=== PATIENT | female | born 1965 | race Caucasian/White ===

== ENCOUNTER 2018-12-12 10:58 | Observation (INO) | payer BC ==
[2018-12-12] VITALS (7 sets, daily range): BP systolic 117–148; BP diastolic 76–107; BMI 26.6
[~2018-12-12 10:58] MED LIST: BACTRIM 400-801 TAB PO; COZAAR100 MG; EFFEXOR XR75 MG PO; ESTRACE 0.0142.5 GM VG; FLAGYL 500500 MG/100 PO; HYDROCODON-ACE1 EAC7; MEDROL DOSE PACK4 MG; SOMA350 MG; TEMAZEPAM30 MG PO; XIFAXAN200 MG PO; ZOFRAN4 MG PO
--- NOTE | 2018-12-12 11:20 | NUR ---
RECEIVED PT TO LABOR AND DELIVERY, ROOM #1257, PT ORIENTED TO ROOM, TO BED. REVIEWING WRITTEN ORDERS FROM DR. HERRERA.
--- NOTE | 2018-12-12 11:30 | NUR ---
SEE EMAR FOR ALL MEDS ADM BY THIS RN.
--- NOTE | 2018-12-12 12:14 | NUR ---
PT TO XRAY BY WHEELCHAIR WITH RAD STAFF.
[2018-12-12 12:20] LABS: HEMATOCRIT 47.1 % (36.0-48.0); HEMOGLOBIN 16.5 g/dL (12-16); LYMPHOCYTES 33.3 % (15-50); MCH 30.6 pg (26.0-34.0); MCV 87.2 fL (80.0-100.0); MEAN PLATELET VOLUME 8.5 fL (7.4-10.4); NEUTROPHILS 60.2 % (40-80); RDW 13.3 % (11.5-14.5); WBC 8.4 10x3/uL (4.8-10.8)
[2018-12-12 12:21] LABS: PLATELET COUNT 436 10x3/uL (130-400)
[2018-12-12 12:37] LABS: ALBUMIN 4.8 g/dL (3.4-5.0); ANION GAP 18.2 mmol/L (8-16); BILIRUBIN - TOTAL 0.63 mg/dL (0.2-1.3); CALCIUM 10.3 mg/dL (8.5-10.1); CARBON DIOXIDE 26.2 mmol/L (21.0-32.0); CREATININE - SERUM 1.2 mg/dL (0.6-1.3); POTASSIUM - SERUM 3.4 mmol/L (3.5-5.1); PROTEIN - SERUM 8.8 g/dL (6.4-8.2)
[2018-12-12 12:47] LABS: BILIRUBIN - DIRECT 0.11 mg/dL (0.00-0.30); BILIRUBIN - INDIRECT 0.52 mg/dL (0.00-1.00); T4 THYROXIN - FREE 1.09 ng/dL (0.76-1.46); THYROID STIMULATING HORMONE 1.16 uIU/mL (0.36-3.74)
[2018-12-12 12:54] LABS: APPEARANCE HAZY (CLEAR); BILIRUBIN NEGATIVE (NEGATIVE); COLOR DK YELLOW (YELLOW); GLUCOSE NEGATIVE (NEGATIVE); KETONE SMALL mg/dL (NEGATIVE); NITRITE NEGATIVE (NEGATIVE); PROTEIN TRACE mg/dL (NEGATIVE); SPECIFIC GRAVITY 1.025 (1.005-1.020)
[2018-12-12 12:55] LABS: BACTERIA FEW /hpf (NONE SEEN); EPITHELIAL CELLS 0-5 /hpf (0-5); HYALINE CAST 0-5 /lpf (NONE SEEN); MUCUS >1+ /lpf (NONE SEEN); WHITE CELLS - URINE RARE /hpf (0-5)
--- NOTE | 2018-12-12 12:55 | NUR ---
Nola ALLEN RN TO ROOM, PT HAS REQUESTED JUICE TO DRINK, APPLE JUICE, CRANBERRY AND GRAPE JUICE SERVED.
--- NOTE | 2018-12-12 13:00 | NUR ---
DR. HERRERA TO ROOM TO SPEAK WITH PT.
--- NOTE | 2018-12-12 13:20 | NUR ---
AFTER TWO ATTEMPTS TO START IV, ONCE IN RIGHT WRIST, AND ONCE IN LEFT FOREARM, UNSUCCESSFUL. DR. WADDELL NOTIFIED, AND HERE TO START IV. 20 G IV TO LEFT WRIST X [address] WADDELL WITH D5 1/2 NS, SET ON PUMP AT 150 ML/HR.
--- NOTE | 2018-12-12 14:00 | NUR ---
PT CALLS OUT LIFE MANAGER LIGHT AND REQUESTS MORE JUICE TO DRINK, CRANBERRY JUICE SERVED. PT STATES "IT FEELS SO GOOD TO BE ABLE TO DRINK AND NOT BE SICK, THAT ZOAN WORKS WONDERS". PT SITTING UP IN THE BED, AND DENIES ALL OTHER NEEDS AT THIS TIME. SR UP X 2, CALL LIGHT AND PHONE WITHIN REACH.
--- NOTE | 2018-12-12 14:30 | NUR ---
PT UP TO BR, VOIDS, PT STATES SHE IS HAVING SOME LOWER BACK/FLANK PAIN. 24 HOUR URINE COLLECTION STARTED. PT BACK TO BED, SRUP X2, CALL LIGHT AND PHONE WITHIN REACH.
--- NOTE | 2018-12-12 15:39 | NUR ---
DR. NAJERA IN ROOM TO SPEAK WITH PT.
--- NOTE | 2018-12-12 15:50 | NUR ---
DR. NAJERA AT DESK, WITH VERBAL ORDER RECEIVED TO OBTAIN CONSENTS FOR EGD WITH TIVA ON 12/13/18 @ 1400, PT TO BE NPO AFTER MIDNIGHT.
--- NOTE | 2018-12-12 18:47 | NUR ---
PT IS REPORTING PAIN AGAIN TO UPPER RIGHT STOMACH AREA AND MID BACK PAIN. PT IS REQUESTING SOMETHING STRONGER THAN TYLENOL. DR. HERRERA PAGED.
--- NOTE | 2018-12-12 18:53 | NUR ---
REPORT GIVEN TO 7 P SHIFT.
--- NOTE | 2018-12-12 19:31 | NUR ---
PLAN OF CARE REVIEWED WITH PT. PT REQUESTS TO TAKE MILK OF MAG, XANAX, AND ZOFRAN, MEDS GIVEN PER ORDER AND PT REQUEST. PT REQUESTING PIV BE SL ALSO, STATES THAT SHE HAS URINARY FREQUENCY ON A REGULAR BASIS AND "I HAVE TAKEN MY WATER PILL, I'LL BE IN THE BATHROOM ALL NIGHT." ALSO C/O PAIN 5/10 RIGHT FLANK AND MID BACK REGION WITH RUQ ABD PAIN, STATES THAT RUQ ABD PAIN IS SHARP STABBING/ACHE AND FLANK/MID-BACK PAIN IS DULL ACHE. NO ORDERS NOTED FOR PAIN MEDICATIONS WILL PG ON-CALL MD AND REPORT. SHIFT ASSESSMENT COMPLETED PER FLOWSHEET. BOWELS SOUNDS PRESENT AND HYPERACTIVE X4 QUADS. REPORTS THAT SHE HAD LARGE BM LAST NIGHT FOLLOWING TAKING MAG CITRATE. ICE WATER PROVIDED. DENIES ADDITIONAL NEEDS AT THIS TIME. BED IN LOW POSITION WITH UPPER SIDE RAILS RAISED X2. CALL LIGHT AND PHONE WITHIN REACH. WILL CONTINUE TO MONITOR AND ASSIST PRN.
--- NOTE | 2018-12-12 19:52 | NUR ---
DR HERRERA PAGED PER PT REQUEST FOR 5/10 ABDOMINAL PAIN. PT WANTS SOMETHING STRONGER THAN THE TYLENOL HE ORDERED.
--- NOTE | 2018-12-12 19:57 | NUR ---
MEDICAL, ANESTHESIA, AND BLOOD CONSENTS SIGNED AND WITNESSED FOR EDG WITH TIVA. PT DENIES QUESTIONS.
--- NOTE | 2018-12-12 20:03 | NUR ---
DR NIÑO CALLED TO LABOR UNIT AT THIS TIME FOR DR HERRERA, REPORT GIVEN TO INCLUDE PT REQUEST FOR NORCO 5/325MG FOR 5/10 ABDOMINAL PAIN AND TO HAVE HER IV SALINE LOCKED. CREATININE LEVEL REPORTED AND NEW ORDERS NOTED FOR PAIN MEDICATION AND TO SALINE LOCK IV.
--- NOTE | 2018-12-12 20:20 | NUR ---
NORCO GIVEN PER ORDER AND PT REQUEST. C/O PAIN 5/10 ABD RUQ DULL ACHE AND RIGHT MID BACK TO FLANK PAIN SHARP STABBING. REPORTS THAT PAIN INCREASED AFTER SHE ATE THIS EVENING. DINNER TRAY REMOVED FROM ROOM WITH 50% EATEN. PIV TO RIGHT HAND SL AT THIS TIME. PT UPDATED ON PLAN OF CARE AND VERBALIZES UNDERSTANDING. NONSKID SOCKS PROVIDED TO PT. DENIES ADDITIONAL NEEDS. BED IN LOW POSITION WITH UPPER SIDE RAILS RAISED X2. CALL LIGHT AND PHONE WITHIN REACH. WILL CONTINUE TO MONITOR AND ASSIST PRN.
--- NOTE | 2018-12-12 20:25 | NUR ---
PHARMACY CALLED FOR PTS MIGRAINE MEDICATION, STATES THAT THEY HAVE ORDERED IT BUT IT WILL NOT BE HERE UNTIL THE MORNING.
--- NOTE | 2018-12-12 21:15 | NUR ---
PAIN REASSESSMENT COMPLETED. 08/22, DENIES NEEDS. ICE WATER PROVIDED AND ENCOURAGED PO INTAKE. BED IN LOW POSITION WITH UPPER SIDE RAILS RAISED X2. CALL LIGHT AND PHONE WITHIN REACH.
--- NOTE | 2018-12-12 22:44 | NUR ---
30 MG RESTORIL GIVEN PER PT REQUEST. ORTHOSTATIC V/S DONE WITH LAYING PRESSURE OF 127/85, SITTING 120/85, AND STANDING 117/76. DENIES DIZZINESS. DENIES PAIN AND NEEDS. ICE REPLACED ON URINE. BED IN LOW POSITION WITH UPPER SIDE RAILS RAISED X2. CALL LIGHT AND PHONE WITHIN REACH. ENCOURAGED USE OF CL FOR ASSISTANCE OOB PRN, VERBALIZES UNDERSTANDING. WILL CONTINUE TO MONITOR.
--- NOTE | 2018-12-13 00:30 | NUR ---
PT RESTING QUIETLY WITH EYES CLOSED, EASILY AROUSED TO VERBAL. DENIES NEEDS, WILL CONTINUE TO MONITOR
--- NOTE | 2018-12-13 01:37 | NUR ---
OCCULT STOOL SPECIMAN COLLECTED AND TAKEN TO LAB. DENIES PAIN AND NEEDS AT THIS TIME. STEADY GAIT NOTED. BED IN LOW POSITION WITH UPPER SIDE RAILS RAISED X2. CALL LIGHT AND PHONE WITHIN REACH. WILL CONTINUE TO MONITOR AND ASSIST PRN.
--- NOTE | 2018-12-13 03:31 | NUR ---
C/O RIGHT FLANK/MID BACK PAIN 4/10 AND NAUSEA. NORCO GIVEN WITH SMALL SIP OF WATER AND ZOFRAN GIVEN SLOW IVP. DENIES ADDITIONAL NEEDS. REPORTS THAT SHE IS STRAINING URINE AND HAS NOT SEEN A STONE. RT HAND PIV FLUSHES WITHOUT DIFFICULTY, NO S/S OF INFILTRATION NOTED. BED IN LOW POSITION WITH UPPER SIDE RAILS RAISED X2. CALL LIGHT AND PHONE WITHIN REACH. WILL CONTINUE TO MONITOR AND ASSIST PRN.
--- NOTE | 2018-12-13 04:20 | NUR ---
PAIN REASSESSMENT COMPLETED. PT RESTING QUIETLY WITH EYES CLOSED. RESPIRATIONS REGULAR AND UNLABORED, NO S/S OF DISTRESS NOTED. BED IN LOW POSITION WITH UPPER SIDE RAILS RAISED X2. CALL LIGHT AND PHONE WITHIN REACH. WILL CONTINUE TO MONITOR AND ASSIST PRN.
[2018-12-13 05:14] VITALS: BP 127/81
--- NOTE | 2018-12-13 05:14 | NUR ---
ROUNDS MADE. WATCHING TV. VSS. REFUSES ORTHOSTATIC V/S AT THIS TIME, STATES THAT SHE FEELS "OKAY AND I'M NOT DIZZY LIKE I WAS WHEN I CAME IN." DENIES NEEDS. BED IN LOW POSITION WITH UPPER SIDE RAILS RAISED X2. CALL LIGHT AND PHONE WITHIN REACH. WILL CONTINUE TO MONITOR AND ASSIST PRN.
--- NOTE | 2018-12-13 06:13 | NUR ---
UP IN BATHROOM, DENIES NEEDS AT THIS TIME. BED IN LOW POSITION WITH UPPER SIDE RAILS RAISED X2. CALL LIGHT AND PHONE WITHIN REACH. WILL CONTINUE MONITOR AND ASSIST PRN.
--- NOTE | 2018-12-13 07:09 | NUR ---
REPORT TO DAY SHIFT.
--- NOTE | 2018-12-13 07:25 | HP ---
PATIENT: MYRA LOPEZ MEDICAL RECORD: [id number] ACCOUNT: [id number] LOCATION:[id number] : 65 ADMISSION DATE: 12/12/18 PCP: LALI HERRERA MD HISTORY AND PHYSICAL EXAMINATION OBSERVATION NOTE HISTORY OF PRESENT ILLNESS: The patient is a 53-year-old female, 3-0-0-3, who presents with a 1-week history of nausea, intermittent abdominal pain, constipation and poor oral intake. She was noted last week to have microscopic hematuria and an outpatient CT did reveal bilateral punctate renal stones and a distal stone on the left, which she passed most likely. She then went on a trip to [place] and on coming back became somewhat nauseated and has continued. She has had very little p.o. intake in the last 5 days as a result. She had nausea without vomiting, but has retched a few times. She is taking cathartics to help move her bowels. She had x-ray in the office yesterday that showed still significant stool in her colon. She took mag citrate last night and had good evacuation. She also was concerned she has been having intermittent flushing for several months of her face. It is not associated with meals, but occasionally has diarrhea. Since July of last year, she has been fatigued with no energy. She had had menopausal symptoms, but says these new flushes she is having are unlike her previous hot flashes. She has had gradual weight gain over the last 5 years despite exercise. She was hospitalized in 2014 for an episode of colitis that responded to oral antibiotics, but she did not have a followup colonoscopy. Her last colonoscopy was at least [address] Bender showed some diverticulitis. She was diagnosed with IBS. She has history of seasonal depression as well and has been no medication for this and this last year. PAST MEDICAL HISTORY: Cholelithiasis, history of dermoid cyst of the right ovary post-oophorectomy in 1990, history of essential hypertension, osteoarthritis, migraine headaches, seasonal affective disorder, question of bipolar disorder, menopausal, history of multiple ureteral stones with lithotripsy and stone basket times 3, has had remote fibular fracture, chronic insomnia. SOCIAL HISTORY: . Nonsmoker. Drinks occasional wine. She is a physician, non-practicing. She has 3 children, all have finished college. FAMILY HISTORY: Her mother is living, has history of CAD and hypertension. Father of sudden . There is apparently history of some aunts with colon cancer. ALLERGIES: None mentioned. PAST SURGICAL HISTORY: Right oophorectomy in 1990 for teratoma, cholecystectomy, left knee surgery, total hysterectomy in 2007 due to metrorrhagia. HOME MEDICATIONS: Restoril 30 mg at bedtime p.r.n. sleep; Dyazide 1 every morning; Relpax 40 mg p.o. as directed for migraine headaches; diclofenac 50 mg p.o. b.i.d. after meals for arthralgias, Verapamil ER 240 mg a day, Protonix 40 mg daily started recently. REVIEW OF SYSTEMS: HISTORY AND PHYSICAL [id number] MYRA LOPEZ GENERAL: Fatigue with significant weight gain over the last several years. Fatigue has been worse over the last 5 months. Poor appetite. HEENT: No recent visual change, sinus congestion, sore throat, or hearing difficulty. RESPIRATORY: No severe cough. CARDIAC: She has intermittent palpitations at times, especially at night and she is unable to sleep. Denies any exertional chest pain, PND, orthopnea or edema. GASTROINTESTINAL: Has had nausea consistently for the last 5 days, resulting in poor appetite. No solid food, dysphagia, blood per rectum or GERD symptoms. Last colonoscopy was over 12 years ago showing diverticulitis she states. GENITOURINARY: No dysuria currently. She has had some microscopic hematuria, but her renal colic has resolved. GYNECOLOGICAL: No vaginal bleeding. RESPIRATORY: No cough, sputum production. MUSCULOSKELETAL: Has lumbago without sciatica. She has some arthralgias in her left knee as well. INTEGUMENT: No rash or itching except for flushing she has intermittently, not related to meals. ENDOCRINE: Denies polyuria, polydipsia, has had some heat intolerance, but not a cold intolerance. PSYCHIATRIC: Admits to seasonal depression. Says she is not overly depressed currently. She is anxious about her health and is concerned she might have carcinoid tumor. NEUROLOGICAL: No history of stroke, TIA. Has had history of migraine headaches in the past, improved since menopause. PHYSICAL EXAMINATION: VITAL SIGNS: Blood pressure 148/107, heart rate is 106 and regular, respirations are 20, sats 97% on room air, temperature is 97.7 Fahrenheit. GENERAL: The patient is anxious and alert. HEENT: Normocephalic. Eyes are clear. Mucous membranes are dry. Her face shows malar flushing. NECK: Supple, without bruits. CHEST: Clear. HEART: Tachycardic without murmur or gallop. ABDOMEN: Soft, nontender throughout. Bowel sounds are active. RECTAL: Deferred. EXTREMITIES: No CC&E. Slight crepitus in left knee to flexion and extension. NEUROLOGIC: Oriented to person, place, and time. Cranial nerves are intact. Gait is normal. Reflexes intact. PSYCHIATRIC: She is anxious and concerned about potential for carcinoid tumor, which she thinks she may have. There is no family history. She has seasonal depressive symptoms and says they are not severe now. She has seen psychiatry in the past. Chronic insomnia. She denies suicidal ideation. DIAGNOSTIC DATA: Recent CT scan of the abdomen at [facility] showed some hepatic steatosis, bilateral small punctate renal stones, otherwise unremarkable except for absence of uterus, right ovary and gallbladder. LABORATORY DATA: Has a white count of 8400, hemoglobin 16.5, hematocrit 47.1, platelet count is 436,000 with normal diff. Chemistry; potassium is low at 3.4, BUN and creatinine are 31 and 1.2, anion gap is 18, glucose 113. AST and ALT are mildly elevated at 50 and 82 respectively. T4 and TSH are normal. HISTORY AND PHYSICAL [id number] MYRA LOPEZ ASSESSMENT: 1. Symptomatic intravascular volume depletion. 2. Hypokalemia. 3. New-onset constipation, diverticulosis, history of colitis, flushing, etiology unknown. History of irritable bowel syndrome, history of teratoma, postmenopausal, depression, hypertension. PLAN: We will hydrate the patient. Currently, she is dehydrated, both clinically and is prerenal on her lab results. We will check 24-hour 5-HIAA urine collection because we are concerned for carcinoid. Replace potassium. Control blood pressure. Further workup pending clinical course. TRANSINT:[id number] Voice Confirmation ID: [id number] DOCUMENT ID: [id number] LALI HERRERA MD at 0725 CC: [id number] DICTATION DATE: 12/12/18 1345 FLIGHT PARAMEDIC: 12/12/18 1538 [place] [id number]
[2018-12-13 07:32] VITALS: BP 128/89
[2018-12-13 07:35] LABS: ALBUMIN 4.2 g/dL (3.4-5.0); ANION GAP 13.9 mmol/L (8-16); BILIRUBIN - DIRECT 0.14 mg/dL (0.00-0.30); BILIRUBIN - INDIRECT 0.55 mg/dL (0.00-1.00); BILIRUBIN - TOTAL 0.69 mg/dL (0.2-1.3); CALCIUM 9.4 mg/dL (8.5-10.1); CARBON DIOXIDE 26.3 mmol/L (21.0-32.0); CREATININE - SERUM 0.9 mg/dL (0.6-1.3); PROTEIN - SERUM 7.8 g/dL (6.4-8.2)
[2018-12-13 07:37] LABS: POTASSIUM - SERUM 4.2 mmol/L (3.5-5.1)
--- NOTE | 2018-12-13 07:45 | NUR ---
BEDSIDE SHIFT REPORT COMPLETED AND AM ASSESSMENT ALSO DONE AT THIS TIME. PT DENIES NAUSEA AND STATES SHE HAS "NO MORE DISCOMFORT THAN USUAL" SALINE LOCK TO LEFT HAND IS PATENT WITH NO SIGNS OF REDNESS OR SWELLING, DENIES TENDERNESS WITH TOUCH. ICE ADDED TO URINE COLLECTION IN BATHROOM. DENIES ANY NEEDS AT THIS TIME, SIDE RAILS UP X 2 WITH PHONE AND CALL LIGHT IN REACH.
--- NOTE | 2018-12-13 08:30 | NUR ---
CALLED TO ROOM, PT ASKING IF SOMEONE WAS JUST IN HER ROOM? SHE APPEARS DROWSY SHE IS ASKING THIS, REASSURED HER THAT NO ONE THAT THIS RN IS AWARE OF HAD RECENTLY BEEN IN ROOM COULD SHE HAVE BEEN DREAMING THIS. STATES SHE JUST WANTED TO MAKE SURE BECAUSE THE DREAM SHE HAD WAS SO REAL THAT IT WOKE HER UP SHE DID NOT GO IN TO DETAIL ABOUT DREAM BUT AFTER TALKING SHE ASKED FOR LIGHTS TO BE TURNED DOWN AND REPOSITIONED SELF TO LEFT SIDE. SIDE RAILS UP X 2 WITH CALL LIGHT IN REACH.
--- NOTE | 2018-12-13 09:30 | NUR ---
PT ASKING FOR HER XANXAX DUE TO FEELING INCREASE ANXIETY, UNDERSTANDS THAT SURGERY WOULD BE CONTACTED DUE TO HER BEING NPO FOR EGD SCHEDULED THIS AFTERNOON.
--- NOTE | 2018-12-13 09:40 | NUR ---
SURGERY CALLED, SPOKE WITH THU WHO SUGGEST THAT ANESTHESIA BE CONTACTED ABOUT PT TAKING MEDS THIS AM.
--- NOTE | 2018-12-13 09:41 | NUR ---
DR WADDELL PAGED AND RETURNS CALL IMMEDIATELY, REPORT GIVEN OF PT ASKING FOR PRN XANAX, AND BLOOD PRESSURE MED. OK PER DR WADDELL TO GIVE THESE WITH SMALL SIP OF WATER. =
--- NOTE | 2018-12-13 09:45 | NUR ---
DR WADDELL PAGED AND RETURNS CALL IMMEDIATELY, REPORT GIVEN OF PT ASKING FOR PRN XANAX, AND BLOOD PRESSURE MED. OK PER DR WADDELL TO GIVE THESE WITH SMALL SIP OF WATER.
--- NOTE | 2018-12-13 09:45 | NUR ---
MEDS GIVEN CHARTED ON EMAR. PT APPEARS MORE RELAXED AND IS ON HER COMPUTER. DENIES ANY OTHER NEEDS AT THIS TIME.
[2018-12-13 10:42] VITALS: BMI 26.6
--- NOTE | 2018-12-13 11:00 | NUR ---
ROUNDS MADE, PT RESTING WITH EYES CLOSED AND RESP EVEN, SHE DOES OPEN HER EYES ROOM DOOR IS CLOSING. VERIFIED THAT NO NEEDS AT THIS TIME. SIDE RAILS UP X 2 WITH CALL LIGHT IN REACH.
--- NOTE | 2018-12-13 12:40 | NUR ---
PT REMAINS ON LEFT SIDE WITH EYES CLOSED AND RESP EVEN, NO SIGNS OF DISTRESS NOTED, PT LEFT UNDISTURBED. CALL LIGHT WITH IN HER REACH WITH SIDE RAILS UP X 2.
[2018-12-13 14:00] VITALS: BP 114/73
--- NOTE | 2018-12-13 14:00 | NUR ---
GI LAB CALLS REQUESTING THAT PT BE GIVEN PRE-OP MEDS OF PEPCID AND REGLAN.
--- NOTE | 2018-12-13 14:09 | NUR ---
PRE-OP MEDS GIVEN IVP, PT CHANGED IN TO HOSPTIAL GOWN AND UP TO VOID. DENIES ANY QUESTIONS OR CONCNERS.
--- NOTE | 2018-12-13 14:30 | NUR ---
TAKEN TO GI LAB VIA BED WITH OUTPT RN.
--- NOTE | 2018-12-13 15:45 | NUR ---
PT RECEIVED BY BED BACK TO ROOM FROM GI, SHE IS AWAKE AND ALERT. DENIES PAIN OR DISCOMFORT, NO NAUSEA AND IS ASKING FOR SOMETHING TO DRINK. ORDERS CHECKED, SMALL APPLE JUICE PER REQUEST. PT ASKING WHEN SHE WILL BE ABLE TO GO HOME, P T MOTHER AT BEDSIDE.
--- NOTE | 2018-12-13 16:30 | NUR ---
DIETARY NOTIFIED OF PT REQUEST FOR CREAM OF CHICKEN SOUP. LARGE ICE WATER PER REQUEST. DENIES PAIN OR DISCOMFORT AT THIS TIME.
--- NOTE | 2018-12-13 17:15 | NUR ---
DISCHARGE ORDER RECEIVED.
--- NOTE | 2018-12-13 17:45 | NUR ---
SALINE LOCK REMOVED WITH CATH INTACT. PT HAS ALREADY DRESSED, VERBAL AND WRITTEN DISCHARGE INSTRUCTIONS GONE OVER WITHOUT QUESTIONS OR CONCERNS. UNDERSTANDS TO TAKE PROTONIX 40MG X 30DAYS. DENIES ANY QUESTIONS OR CONCERNS. PT REQUEST TO WALK OUT WITH SPOUSE. NO SIGNS OF DISTRESS NOTED.
[2018-12-18 04:09] LABS: 5HIAA - 24HR 2.5 mg/24 hr (0.0-14.9); 5HIAA - UR 3.6 mg/L (Undefined)
== END 2018-12-13 17:45 | disposition home or self-care (01) ==
LOC: D.LD 10:58 → OBSVTIME 11:00 → D.LD 12-13 17:45
PROVIDERS: ADMIT Family Medicine; ATTEND Family Medicine
DX: K29.70 Gastritis, unspecified, without bleeding (principal); E86.9 Volume depletion, unspecified; E87.6 Hypokalemia; K57.90 Diverticulosis of intestine, part unspecified, without perforation or abscess without bleeding; K59.00 Constipation, unspecified; Z78.0 Asymptomatic menopausal state; I10 Essential (primary) hypertension; F33.9 Major depressive disorder, recurrent, unspecified; K29.80 Duodenitis without bleeding; E86.0 Dehydration

== ENCOUNTER 2020-03-27 02:15 | Emergency (ER) | payer BC ==
[~2020-03-27] VITALS: Ht 165.1 cm; Wt 68.2 kg
[2020-03-27 02:23] VITALS: Ht 165.1 cm; Wt 68.2 kg
[2020-03-27] MEDS ORDERED: EFFEXOR50 MG PO (02:25)
[2020-03-27] MEDS ORDERED: TRIAMTERENE-HC1 EAC3 PO (02:25)
[2020-03-27 02:36] LABS: BASOPHILS 0.4 % (0-2); EOSINOPHILS 2.3 % (0-7); HEMATOCRIT 42.4 % (36.0-48.0); HEMOGLOBIN 14.5 g/dL (12-16); IMMATURE GRANULOCYTES 0.2 % (0-5); LYMPHOCYTES 36.6 % (15-50); MCH 30.2 pg (26.0-34.0); MCHC 34.2 g/dL (31.0-37.0); MCV 88.3 fL (80.0-100.0); MEAN PLATELET VOLUME 8.7 fL (7.4-10.4); MONOCYTES 5.4 % (2-11); NEUTROPHILS 55.1 % (40-80); WBC 9.8 10x3/uL (4.8-10.8)
[2020-03-27 02:37] LABS: PLATELET COUNT 326 10x3/uL (130-400)
[2020-03-27 02:52] LABS: ALBUMIN 4.2 g/dL (3.4-5.0); ALKALINE PHOSPHATASE 111 U/L (30-120); ALT (SGPT) 114 U/L (10-68); AMYLASE - SERUM 71 U/L (25-115); BILIRUBIN - TOTAL 0.34 mg/dL (0.2-1.3); CALC OSMOLALITY 287 mosm/kg (275-300); CALCIUM 9.6 mg/dL (8.5-10.1); CHLORIDE - SERUM 101 mmol/L (98-107); CREATININE - SERUM 1.1 mg/dL (0.6-1.3); GLUCOSE 109 mg/dL (74-106); LIPASE 128 U/L (73-393); PROTEIN - SERUM 8.1 g/dL (6.4-8.2); SODIUM 143 mmol/L (136-145); UREA NITROGEN 19 mg/dL (7-18); eGFR NON AFRICAN AMERICAN 55 mL/min (90-120)
[2020-03-27 03:04] LABS: TROPONIN-I < 0.017 ng/mL (0.000-0.060)
[2020-03-27 03:05] LABS: POTASSIUM - SERUM 2.6 mmol/L (3.5-5.1)
[2020-03-27 03:47] LABS: BILIRUBIN NEGATIVE (NEGATIVE); GLUCOSE NEGATIVE (NEGATIVE); KETONE NEGATIVE (NEGATIVE); NITRITE NEGATIVE (NEGATIVE); UROBILINOGEN NORMAL (NORMAL)
[2020-03-27] MEDS ORDERED: TYLENOL #4 W/CO1 TAB PO (06:03)
[2020-03-27] MEDS ORDERED: PROTONIX40 MG PO (06:03)
[2020-03-27 06:55] VITALS: BP 145/89
== END 2020-03-27 06:55 | disposition home or self-care (01) ==
LOC: D.ER 02:15
PROVIDERS: Family Medicine
DX: R10.13 Epigastric pain (principal); Z20.828 Contact with and (suspected) exposure to other viral communicable diseases